=== PATIENT | female | born 1955 | race Caucasian/White ===

== ENCOUNTER 2018-08-22 08:13 | Day surgery (SDC) | payer BC ==
[2018-08-18 08:46] VITALS: BMI 25.7
[2018-08-22] MEDS ORDERED: PROPOFOL 20 ML ONE (09:25)
[2018-08-22] MEDS ORDERED: LIDOCAINE HCL/PF 2% SDV 5ML VIAL ONE (09:25)
[2018-08-22] MEDS ORDERED: GLYCOPYRROLATE 0.2 MG/1 ML VIAL ONE (09:45)
[2018-08-22 10:05] VITALS: TEMP 97.8
[2018-08-22 10:37] VITALS: BP 112/52; PULSE 59
--- NOTE | 2018-08-24 16:41 | PATH ---
Surgical Pathology Report Patient Name: JANIA VARNER [facility]. Rec. #: [id number] /Age/Gender: 1955 (Age: 63) / F Account: [id number] Location: [id number] Taken: 08/22/2018 Received: 08/22/2018 Reported: 08/24/2018 Physicians: Remigio Jiang M.D. Specimen(s) Received A: CECUM B: RIGHT COLON C: TRANSVERSE COLON D: LEFT COLON E: SIGMOID F: DISTAL SIGMOID G: RECTOSIGMOID COLON H: RECTUM Clinical History History of colitis Postoperative diagnosis: Distal ulcerative colitis Final Diagnosis A. CECUM, BIOPSY: COLONIC MUCOSA WITH SMALL LYMPHOID AGGREGATE. B. COLON, RIGHT, BIOPSY: COLONIC MUCOSA WITH MILD ARCHITECTURAL DISTORTION. NO ACUTE/ACTIVE INFLAMMATION IDENTIFIED. C. TRANSVERSE COLON, BIOPSY: COLONIC MUCOSA WITH MILD ARCHITECTURAL DISTORTION. NO ACUTE/ACTIVE INFLAMMATION IDENTIFIED. D. COLON, LEFT, BIOPSY: COLONIC MUCOSA WITHOUT SIGNIFICANT PATHOLOGIC FINDINGS. E. SIGMOID COLON, BIOPSY: COLONIC MUCOSA WITHOUT SIGNIFICANT PATHOLOGIC FINDINGS. F. DISTAL SIGMOID COLON, BIOPSY: COLONIC MUCOSA WITH MODERATE TO SEVERE CHRONIC ACTIVE COLITIS. NO GRANULOMA OR DYSPLASIA IDENTIFIED. SEE COMMENT. G. RECTOSIGMOID COLON, BIOPSY: COLONIC MUCOSA WITH SEVERE CHRONIC ACTIVE COLITIS. NO GRANULOMA OR DYSPLASIA IDENTIFIED. SEE COMMENT. H. RECTUM, BIOPSY: COLONIC MUCOSA WITH SEVERE CHRONIC ACTIVE COLITIS AND FOCAL ULCERATION. NO GRANULOMA OR DYSPLASIA IDENTIFIED. SEE COMMENT. Comment: Although may be seen in inflammatory bowel disease; differential diagnosis includes infection, medication, and diverticular disease. Suggest clinical and endoscopic correlation. Electronically Signed Lucila Morton M.D. Gross Description A. Received in formalin, labeled "cecum" are 4 gardner, irregular portions of soft tissue ranging from 0.3-0.4 cm. in greatest dimension. The specimens are submitted in toto in one cassette. B. Received in formalin, labeled "right colon" are 4 gardner, irregular portions of soft tissue ranging from 0.2-0.4 cm. in greatest dimension. The specimens are submitted in toto in one cassette. C. Received in formalin, labeled "transverse" are 4 gardner, irregular portions of soft tissue ranging from 0.2-0.5 cm. in greatest dimension. The specimens are submitted in toto in one cassette. D. Received in formalin, labeled "left colon" are 4 gardner, irregular portions of soft tissue ranging from 0.2-0.4 cm. in greatest dimension. The specimens are submitted in toto in one cassette. E. Received in formalin, labeled "sigmoid colon" are 4 gardner, irregular portions of soft tissue averaging 0.3 cm. in greatest dimension. The specimens are submitted in toto in one cassette. F. Received in formalin, labeled "distal sigmoid colon" are 4 gardner, irregular portions of soft tissue ranging from 0.3-0.4 cm. in greatest dimension. The specimens are submitted in toto in one cassette. G. Received in formalin, labeled "rectosigmoid" are 4 gardner, irregular portions of soft tissue ranging from 0.2-0.4 cm. in greatest dimension. The specimens are submitted in toto in one cassette. H. Received in formalin, labeled "rectum" are 4 gardner, irregular portions of soft tissue ranging from 0.3-0.6 cm. in greatest dimension. The specimens are submitted in toto in one cassette. 08/23/2018 formerly [facility]08/23/2018
== END 2018-08-22 10:40 | disposition home or self-care (01) ==
LOC: FASU-ENDO 08:13
PROVIDERS: ATTEND Internal Medicine Gastroenterology
PROC: 0DBL8ZX Excision of Transverse Colon, Via Natural or Artificial Opening Endoscopic, Diagnostic (ICD-10-PCS; 2018-08-22)
PROC: 0DBN8ZX Excision of Sigmoid Colon, Via Natural or Artificial Opening Endoscopic, Diagnostic (ICD-10-PCS; 2018-08-22)
PROC: 0DBP8ZX Excision of Rectum, Via Natural or Artificial Opening Endoscopic, Diagnostic (ICD-10-PCS; 2018-08-22)
PROC: 0DBM8ZX Excision of Descending Colon, Via Natural or Artificial Opening Endoscopic, Diagnostic (ICD-10-PCS; 2018-08-22)
PROC: 0DBK8ZX Excision of Ascending Colon, Via Natural or Artificial Opening Endoscopic, Diagnostic (ICD-10-PCS; principal; 2018-08-22 09:29)
DX: Z87.19 Personal history of other diseases of the digestive system (principal); K51.90 Ulcerative colitis, unspecified, without complications
CPT/HCPCS: 88305-TC

== ENCOUNTER 2021-12-08 08:16 | Day surgery (SDC) | payer BC ==
[2021-12-05 12:21] VITALS: BMI 25.7
[2021-12-08] MEDS ORDERED: PROPOFOL 20 ML ONE ×2 (09:35)
[2021-12-08 10:14] VITALS: TEMP 97.8
[2021-12-08 10:27] VITALS: BP 121/72; PULSE 68
== END 2021-12-08 10:35 | disposition home or self-care (01) ==
LOC: FASU-ENDO 08:16
PROVIDERS: ATTEND Internal Medicine Gastroenterology
PROC: 0DBL8ZX Excision of Transverse Colon, Via Natural or Artificial Opening Endoscopic, Diagnostic (ICD-10-PCS; 2021-12-08)
PROC: 0DBN8ZX Excision of Sigmoid Colon, Via Natural or Artificial Opening Endoscopic, Diagnostic (ICD-10-PCS; 2021-12-08)
PROC: 0DBP8ZX Excision of Rectum, Via Natural or Artificial Opening Endoscopic, Diagnostic (ICD-10-PCS; 2021-12-08)
PROC: 0DBC8ZX Excision of Ileocecal Valve, Via Natural or Artificial Opening Endoscopic, Diagnostic (ICD-10-PCS; 2021-12-08)
PROC: 0DBM8ZX Excision of Descending Colon, Via Natural or Artificial Opening Endoscopic, Diagnostic (ICD-10-PCS; 2021-12-08)
PROC: 0DBH8ZX Excision of Cecum, Via Natural or Artificial Opening Endoscopic, Diagnostic (ICD-10-PCS; 2021-12-08)
PROC: 0DBK8ZX Excision of Ascending Colon, Via Natural or Artificial Opening Endoscopic, Diagnostic (ICD-10-PCS; principal; 2021-12-08 09:27)
DX: K52.89 Other specified noninfective gastroenteritis and colitis (principal); Z87.19 Personal history of other diseases of the digestive system
CPT/HCPCS: 88305-TC

== ENCOUNTER 2024-05-17 07:45 | Day surgery (SDC) | payer OTHER, MEDICARE ==
[2024-05-15 13:52] VITALS: BMI 23.8
[2024-05-17 08:10] VITALS: RESP 16
[2024-05-17] MEDS ORDERED: PROPOFOL 40 ML ONE (08:10)
[2024-05-17 09:29] VITALS: PULSE 60; TEMP 98
[2024-05-17 09:40] VITALS: BP 122/78
== END 2024-05-17 10:15 | disposition home or self-care (01) ==
LOC: FASU-ENDO 07:45
PROVIDERS: ATTEND Internal Medicine Gastroenterology
PROC: 0DBL8ZX Excision of Transverse Colon, Via Natural or Artificial Opening Endoscopic, Diagnostic (ICD-10-PCS; 2024-05-17)
PROC: 0DBN8ZX Excision of Sigmoid Colon, Via Natural or Artificial Opening Endoscopic, Diagnostic (ICD-10-PCS; 2024-05-17)
PROC: 0DBP8ZX Excision of Rectum, Via Natural or Artificial Opening Endoscopic, Diagnostic (ICD-10-PCS; 2024-05-17)
PROC: 0DBM8ZX Excision of Descending Colon, Via Natural or Artificial Opening Endoscopic, Diagnostic (ICD-10-PCS; 2024-05-17)
PROC: 0DBH8ZX Excision of Cecum, Via Natural or Artificial Opening Endoscopic, Diagnostic (ICD-10-PCS; 2024-05-17)
PROC: 0DBK8ZX Excision of Ascending Colon, Via Natural or Artificial Opening Endoscopic, Diagnostic (ICD-10-PCS; 2024-05-17)
PROC: 0DBQ8ZX Excision of Anus, Via Natural or Artificial Opening Endoscopic, Diagnostic (ICD-10-PCS; principal; 2024-05-17 08:58)
DX: Z12.11 Encounter for screening for malignant neoplasm of colon (principal); K52.9 Noninfective gastroenteritis and colitis, unspecified; K63.89 Other specified diseases of intestine; Z87.19 Personal history of other diseases of the digestive system
CPT/HCPCS: 88305-TC